=== PATIENT | male | born 1955 | race Asian ===

== ENCOUNTER 2022-06-11 10:39 | Outpatient (REF) | payer OTHER, SELFPAY ==
[2022-06-11 13:48] LABS: MANUAL DIFF FLAG NO
[2022-06-11 13:58] LABS: Basophils Percent Auto 0.7 % (0-2); Eosinophils Absolute Auto 0.3 X10*3/uL (0.0-0.4); Eosinophils Percent Auto 7.4 % (0-4); Hematocrit 41.9 % (42.0-52.0); Hemoglobin 13.9 g/dl (14.0-18.0); Imm Gran Abs Auto 0.01 X10*3/uL (0.00-0.03); Imm Gran Pct Auto 0.2 % (0.0-0.4); Lymphocytes Absolute Auto 1.9 X10*3/uL (1.2-4.9); Lymphocytes Percent Auto 41.4 % (20-40); Mean Corpuscular HGB Conc 33.2 g/dl (31.0-36.0); Mean Corpuscular Hemoglobin 31.8 pg (27.0-33.0); Mean Corpuscular Volume 95.9 fL (80.0-98.0); Monocytes Absolute Auto 0.5 X10*3/uL (0.1-1.2); Neutrophils Absolute Auto 1.9 x10*3/uL (2.0-8.3); Neutrophils Percent Auto 40.3 % (45-73); Platelet Count 289 X10*3/uL (160-400); Red Blood Count 4.37 X10*6/uL (4.60-5.80); Red Cell Distribution Width 12.7 % (11.0-16.0); White Blood Count 4.6 X10*3/uL (4.8-10.8)
[2022-06-11 14:11] LABS: Alanine Aminotransferase 16 U/L (0-40); Albumin Level 4.4 g/dL (3.5-5.0); Alkaline Phosphatase 73 U/L (39-117); Anion Gap 11 (12-20); Aspartate Amino Transferase 20 U/L (5-37); Bilirubin Total 0.6 mg/dL (0.0-1.0); Blood Urea Nitrogen 12 mg/dL (9-16); Calcium 9.5 mg/dL (8.4-10.2); Carbon Dioxide 27 mmol/L (22-29); Chloride 105 mmol/L (96-108); Cholesterol 177 mg/dL; Estimated Glomerular Filt Rate > 60; Glucose Fasting 89 mg/dL (60-99); HDL Cholesterol 47 mg/dL; LDL Cholesterol Calculated 117 mg/dl; Potassium 4.6 mmol/L (3.3-5.1); Sodium 138 mmol/L (135-145); Triglycerides 66 mg/dL
[2022-06-11 14:33] LABS: Prostate Specific Antigen 2.64 ng/mL (<0.05-4.0)
== END 2022-06-11 10:40 | disposition home or self-care (01) ==
LOC: HO.10HDL 10:39
PROVIDERS: Visit Provider Internal Medicine
DX: Z00.00 Encounter for general adult medical examination without abnormal findings (principal); Z12.5 Encounter for screening for malignant neoplasm of prostate; Z13.31 Encounter for screening for depression; H26.8 Other specified cataract
CPT/HCPCS: 36415; 80053; 80061; 84153; 85025

== ENCOUNTER 2022-09-12 | Outpatient (REF) | payer MEDICAID, SELFPAY ==
--- NOTE | ~2022-09-12 | XR_ITS ---
EXAMINATION: XR SHOULDER, RIGHT CLINICAL INFORMATION: M25.511 - Pain in right shoulder COMPARISON: None TECHNIQUE: Right shoulder is imaged in 3 views. FINDINGS: No fracture, dislocation, destructive process. The glenohumeral joint is unremarkable. The acromioclavicular alignment is normal. There are no visible rotator cuff calcifications. XR/XR shoulder RT min 2V IMPRESSION: Unremarkable right shoulder.
== END 2022-09-12 00:01 | disposition home or self-care (01) ==
LOC: HO.HOSX
PROVIDERS: Visit Provider Physician Assistant
DX: M77.8 Other enthesopathies, not elsewhere classified (principal)
CPT/HCPCS: 73030; 99202

== ENCOUNTER 2023-06-12 09:56 | Outpatient (REF) | payer MEDICAID, SELFPAY ==
[2023-06-12 10:49] LABS: MANUAL DIFF FLAG NO
[2023-06-12 10:54] LABS: Basophils Percent Auto 0.6 % (0-2); Eosinophils Absolute Auto 0.3 X10*3/uL (0.0-0.4); Eosinophils Percent Auto 5.1 % (0-4); Hematocrit 41.9 % (42.0-52.0); Hemoglobin 14.3 g/dl (14.0-18.0); Imm Gran Abs Auto 0.01 X10*3/uL (0.00-0.03); Imm Gran Pct Auto 0.2 % (0.0-0.4); Lymphocytes Absolute Auto 1.7 X10*3/uL (1.2-4.9); Lymphocytes Percent Auto 33.1 % (20-40); Mean Corpuscular HGB Conc 34.1 g/dl (31.0-36.0); Mean Corpuscular Hemoglobin 33.5 pg (27.0-33.0); Mean Corpuscular Volume 98.1 fL (80.0-98.0); Mean Platelet Volume 9.3 fL (9.4-12.4); Monocytes Absolute Auto 0.5 X10*3/uL (0.1-1.2); Neutrophils Absolute Auto 2.6 x10*3/uL (2.0-8.3); Platelet Count 210 X10*3/uL (160-400); Red Blood Count 4.27 X10*6/uL (4.60-5.80); Red Cell Distribution Width 12.6 % (11.0-16.0); White Blood Count 5.1 X10*3/uL (4.8-10.8)
[2023-06-12 12:41] LABS: Thyroid Stimulating Hormone 1.73 uIU/mL (0.32-4.0)
[2023-06-12 13:04] LABS: Folate 18.2 ng/mL (> or = 4.0); Prostate Specific Antigen Scr 4.17 ng/mL (<0.05-4.0); Vitamin B12 788 pg/mL (200-900)
[2023-06-12 13:23] LABS: Alanine Aminotransferase 15 U/L (0-40); Albumin Level 4.1 g/dL (3.5-5.0); Alkaline Phosphatase 67 U/L (39-117); Anion Gap 12 (12-20); Aspartate Amino Transferase 20 U/L (5-37); Bilirubin Total 0.7 mg/dL (0.0-1.0); Blood Urea Nitrogen 14 mg/dL (9-16); Carbon Dioxide 27 mmol/L (22-29); Chloride 106 mmol/L (96-108); Cholesterol 173 mg/dL; Estimated Glomerular Filt Rate > 60; Glucose Random 57 mg/dL (60-115); HDL Cholesterol 45 mg/dL; LDL Cholesterol Calculated 108 mg/dl; Sodium 141 mmol/L (135-145); Total Protein 7.7 g/dL (6.5-8.0); Triglycerides 103 mg/dL
[2023-06-14 20:53] LABS: TS Negative Control Passed; TS Panel A 5; TS Panel B 9; TS Positive Control Passed; TSpotTB Positive (Negative)
== END 2023-06-12 09:57 | disposition home or self-care (01) ==
LOC: HO.10HDL 09:56
PROVIDERS: Visit Provider Internal Medicine
DX: Z00.00 Encounter for general adult medical examination without abnormal findings (principal); Z12.5 Encounter for screening for malignant neoplasm of prostate; Z11.1 Encounter for screening for respiratory tuberculosis; Z13.31 Encounter for screening for depression; N40.0 Benign prostatic hyperplasia without lower urinary tract symptoms; M77.02 Medial epicondylitis, left elbow; M22.2X1 Patellofemoral disorders, right knee; D64.9 Anemia, unspecified
CPT/HCPCS: 36415; 80053; 80061; 82607; 82746; 84153; 84443; 85025; 86481

== ENCOUNTER 2023-06-19 16:05 | Outpatient (REF) | payer MEDICAID, SELFPAY ==
--- NOTE | ~2023-06-19 | XR_ITS ---
EXAMINATION: XR CHEST CLINICAL INFORMATION: Positive TB test. COMPARISON: None available. TECHNIQUE: 2 views of the chest were obtained. FINDINGS: The lungs are hyperexpanded. Question focal opacity in the right upper lung. No pleural effusion. Cardiac silhouette is within normal limits. XR/XR chest 2V IMPRESSION: Hyperexpansion of lungs. Possible focal opacity in the right upper lung. Short interval follow-up is recommended.
[2023-06-19 20:02] LABS: Prostate Specific Antigen 3.37 ng/mL (<0.05-4.0)
== END 2023-06-19 16:06 | disposition home or self-care (01) ==
LOC: HO.XRAY 16:05
PROVIDERS: PCP Internal Medicine; Visit Provider Internal Medicine
DX: R97.20 Elevated prostate specific antigen [PSA] (principal); Z11.7 Encounter for testing for latent tuberculosis infection; Z12.5 Encounter for screening for malignant neoplasm of prostate
CPT/HCPCS: 36415; 71046; 84153

== ENCOUNTER 2023-12-12 10:06 | Outpatient (REF) | payer OTHER, SELFPAY ==
[2023-12-12 11:02] LABS: Alanine Aminotransferase 17 U/L (0-40); Albumin Level 4.1 g/dL (3.5-5.0); Alkaline Phosphatase 75 U/L (39-117); Anion Gap 9 (12-20); Aspartate Amino Transferase 20 U/L (5-37); Bilirubin Total 0.7 mg/dL (0.0-1.0); Blood Urea Nitrogen 11 mg/dL (9-16); Calcium 9.5 mg/dL (8.4-10.2); Carbon Dioxide 28 mmol/L (22-29); Chloride 107 mmol/L (96-108); Estimated Glomerular Filt Rate > 60; Glucose Random 94 mg/dL (60-115); Potassium 4.2 mmol/L (3.3-5.1); Sodium 140 mmol/L (135-145)
== END 2023-12-12 10:07 | disposition home or self-care (01) ==
LOC: HO.10HDL 10:06
PROVIDERS: Visit Provider Internal Medicine
DX: Z12.5 Encounter for screening for malignant neoplasm of prostate (principal); M22.2X1 Patellofemoral disorders, right knee; R76.12 Nonspecific reaction to cell mediated immunity measurement of gamma interferon antigen response without active tuberculosis; R91.8 Other nonspecific abnormal finding of lung field; R97.20 Elevated prostate specific antigen [PSA]
CPT/HCPCS: 36415; 80053; 84153

== ENCOUNTER 2023-12-12 10:13 | Outpatient (REF) | payer OTHER, SELFPAY ==
--- NOTE | ~2023-12-12 | XR_ITS ---
X-RAY BILATERAL KNEES CLINICAL HISTORY: Bilateral knee osteoarthritis. COMPARISON: No relevant prior studies are available for comparison. TECHNIQUE: 4 views of each knee were obtained. FINDINGS: No fracture or subluxation. Severe joint space narrowing of the medial compartment of the right knee with associated subcortical sclerosis and marginal osteophytes. Moderate joint space narrowing of the medial compartment of the left knee and bilateral patellofemoral compartments. No erosions. No chondrocalcinosis. No joint effusions. XR/XR knee RT 4V IMPRESSION: 1. No acute fractures or subluxation. 2. Severe degenerative osteoarthritis of the medial compartment of the right knee. 3. Moderate generalized osteoarthritis of the medial compartment of the left knee and bilateral patellofemoral compartments.
--- NOTE | ~2023-12-12 | XR_ITS ---
X-RAY BILATERAL KNEES CLINICAL HISTORY: Bilateral knee osteoarthritis. COMPARISON: No relevant prior studies are available for comparison. TECHNIQUE: 4 views of each knee were obtained. FINDINGS: No fracture or subluxation. Severe joint space narrowing of the medial compartment of the right knee with associated subcortical sclerosis and marginal osteophytes. Moderate joint space narrowing of the medial compartment of the left knee and bilateral patellofemoral compartments. No erosions. No chondrocalcinosis. No joint effusions. XR/XR knee LT 4V IMPRESSION: 1. No acute fractures or subluxation. 2. Severe degenerative osteoarthritis of the medial compartment of the right knee. 3. Moderate generalized osteoarthritis of the medial compartment of the left knee and bilateral patellofemoral compartments.
== END 2023-12-12 10:14 | disposition home or self-care (01) ==
LOC: HO.XRAY 10:13
PROVIDERS: PCP Internal Medicine; Visit Provider Internal Medicine
DX: M17.0 Bilateral primary osteoarthritis of knee (principal)
CPT/HCPCS: 73564

== ENCOUNTER 2024-07-20 08:35 | Outpatient (REF) | payer OTHER, SELFPAY ==
--- NOTE | ~2024-07-20 | CT_ITS ---
EXAMINATION: CT CHEST WITH CONTRAST CLINICAL INFORMATION: Question of focal opacity/nodule right upper lung on chest x-ray. COMPARISON: Chest x-ray dated 06/19/2023. No prior CT. TECHNIQUE: Multidetector volumetric CT imaging of the chest was obtained after the administration of 65 mL of Omnipaque 350 intravenous contrast without immediate adverse reactions. Axial MIP volume rendering provided. Sagittal and coronal reformatted images were obtained. This CT examination was performed using dose optimization techniques as appropriate, variously including the following: *Automated exposure control *Adjustment of mA and/or kV according to patient size (this includes techniques or standardized protocols for targeted exams where dose is matched to indication/reason for exam; i.e. extremities or head) *Use of iterative reconstruction technique DLP: 80 mGy-cm Please note, due to [facility] contractual, systems, and staffing issues, an [facility] radiologist was not available for review and dictation of this case until 08/18/2024. FINDINGS: AUTOMOBILE MECHANIC HELPER: Hyperaerated lungs. PULMONARY NODULES: -There are scattered 2-3 mm nodules in both lungs, some calcified. -5 mm x 3 mm rectangular nodule (average diameter 4 mm) in the medial anterior right upper lobe (series 5 image [id number]). This is most likely conforming to a dilated bronchiole. -4 mm nodule with pleural tag and right major fissure medially (series 5, image 130), consistent with intrapulmonary lymph node. -There are no suspicious pulmonary nodules identified. LUNGS: -There is right greater than left apical pleural parenchymal scarring. -There is mild centrilobular emphysema. -There is mild subpleural scarring in the lateral aspect of the superior segment left lower lobe, and left lateral basal segment left lower lobe. -There are no consolidations or evidence of active lung disease. -No pleural effusions or pleural masses. -Small Airways appear normal. Central airways are widely patent. MEDIASTINUM: -Patulous, dilated esophagus is noted. Etiology uncertain. -Normal thyroid. -Aorta is normal in caliber and course with mild calcification. Three-vessel branching pattern. -Main pulmonary artery is normal in size. -No lymphadenopathy in the mediastinum or hilar regions. -Heart size is normal. No pericardial effusion. -There are mild three-vessel coronary calcifications most notable in the LAD. AXILLA/CHEST WALL: No masses or abnormal lymph nodes. UPPER ABDOMEN: -Mild enhancement of the gastric mucosa diffusely, possibly suggesting underlying gastritis. Prominent common-bile duct in the head of the pancreas measuring up to 10 mm. -Contracted gallbladder. -Mild intrahepatic biliary dilatation. -Diffuse fatty infiltration of the liver. No focal liver abnormality in the partially imaged liver. -There are gastric varices and mild splenic varices. OSSEOUS STRUCTURES: -Focal tiny sclerotic lesion in the right fourth rib laterally, nonspecific and most likely a benign bone island. Osseous structures otherwise normal. CT/CT chest w IV con IMPRESSION: 1. Mild centrilobular emphysema with pulmonary hyperaeration. No active underlying pulmonary disease. 2. Scattered pulmonary nodules, largest measuring 4 mm average diameter in the medial right upper lobe. In a high-risk patient, 1 year follow-up suggested. 3. There is no CT correlate to the chest x-ray finding in the right upper lung. 4. Diffuse fatty infiltration of the liver. Splenic and gastric varices may suggest portal hypertension. No obvious cirrhosis seen. 5. Dilated intrahepatic and extrahepatic bile ducts, uncertain etiology or clinical significance. Correlate with laboratory values. Gallbladder is contracted. 6. Diffusely dilated esophagus, uncertain etiology. 7. Enhancement of the gastric mucosa may suggest gastritis. No mass is identified. (Consider correlating with upper GI study). 8. Additional ancillary findings as discussed in the body of the report. Fleischner guidelines were followed. Electronically signed by: Munir Sandoval MD 08/18/2024 11:09 AM EDT
[2024-07-20] MEDS: iohexoL 350 MG/ML 75 ML INFUS..BTL 65 ML IV (09:13)
[2024-07-22 14:16] LABS: Creatinine POC 0.9 mg/dL (0.5-1.4); GFR POC > 60
== END 2024-07-20 08:36 | disposition home or self-care (01) ==
LOC: HO.CT 08:35
PROVIDERS: PCP Internal Medicine; Visit Provider Internal Medicine
DX: R91.8 Other nonspecific abnormal finding of lung field (principal)
CPT/HCPCS: 71260; 82565; Q9967

== ENCOUNTER → 2024-07-20 08:38 | Outpatient (BNV) | payer OTHER, SELFPAY | PROVIDERS: PCP Internal Medicine; Visit Provider Radiology Diagnostic Radiology | DX: R91.8 Other nonspecific abnormal finding of lung field (principal) | CPT/HCPCS: 71260 ==

== ENCOUNTER 2024-11-09 10:24 | Outpatient (AMB) | payer OTHER, SELFPAY ==
--- NOTE | 2024-11-09 10:26 | MHC.OFFVIS ---
Vital Signs 11/09/24 10:34 Height 5 ft 8 in Weight 126 lb BMI 19.2 BP 117/69 Blood Pressure Location Rt brachial Position Sitting Pulse 77 Intake Visit Reasons: Hernia Intake Note: Patient referred by pcp Dr. Linder for Unilateral inguinal hernia. Present for 1m. Patient c/o: pain on Rt lower quadrant. Denies nausea, diarrhea. Video Game Animator Required: Yes Video Game Animator Name: Haresh son~ valentine language Accompanied by: son Haresh Allergies No Known Allergies Allergy (Verified 11/09/24 10:31) HPI Comments Details: Patient presents with a son who also serves as an fruit inspector. The dad has had a symptomatic right inguinal hernia for several months to years time. His increasing in size, become more symptomatic. He would like to have it repaired. He had a pediatric her to be in his youth. He had an appendectomy in the past. Patient has no other GI issues or complaints. He tolerated regular diet. Has normal bowel habits. Chart was reviewed and patient evaluate [facility] Medical History (Updated 11/09/24 @ 10:35 by MAYNOR Barroso) Left inguinal hernia Appendicitis Social History (Updated 09/12/22 @ 15:39 by Stephanie Cheatham [facility]) Current occupational status: retired and disabled Current occupation: right hand Physical Exam Vital Signs: Last Vital Signs Pulse 77 11/09/24 10:34 BP 117/69 11/09/24 10:34 BMI result Body Mass Index 19.2 Const Other: Very thin patient no acute distress Chest Other: Chest breath sounds bilaterally, HS 1 in 2 GI Other: Patient was examined both supine and standing with Valsalva. Abdomen is scaphoid, soft, benign. Left groin negative. Genitalia within normal limits. High-riding right testicle. Patient was a very large right inguinal hernia reducible. Assessment & Plan Assessment & Plan (1) Right inguinal hernia: Code(s): K40.90 - Unilateral inguinal hernia, without obstruction or gangrene, not specified as recurrent Category: Surgical Plan Risks, benefits, alternatives of open right inguinal hernia repair with mesh were reviewed with the patient and included but not limited to bleeding, infection, recurrence, numbness, pain, scarring and the patient wishes to proceed. All questions answered. Arrangements made for this on a day which is convenient for him. Coding Level of Care Code New Pt Level 5 (92194) Diagnoses Right inguinal hernia K40.90
[2024-11-09 10:34] VITALS: BP 117/69; PULSE 77; BMI 19.2
--- OUTSIDE RECORDS SUMMARY | 2024-11-11 14:33 | XMS_ITS | Continuity of Care Document ---
Author Organization Formerly [facility] Address [address] [place] [id number]- Care Team Providers Care Suspender Maker Name Role Phone Amisha Linder MD Primary Care Physician [id number] Date(s): 09/15/24 - 10/15/24 [facility] [address] [address]- Attending Physician: Melissa Landon Admitting Physician: Melissa Landon Referring Physician: Melissa Landon Encounter Type: Triage Patient Care team information Care Team Personnel Name: Amisha Linder MD Position: [facility] Outreach Member Role: PCP Address: [address] [place] [address] [address] Amisha Linder [place], [place] [address] Telecom: Care Team Related Persons Name: JANAE WEST Insurance Providers Guarantor name: NA Health Plan Information #: 1 Payer: [employer] Member Number: NA Policy Number: NA Group Number: NA Health Plan Information #: 2 Payer: [facility] Member Number: NA Policy Number: NA Group Number: NA
== END 2024-11-09 10:44 | disposition home or self-care (01) ==
PROVIDERS: PCP Internal Medicine; Visit Provider Surgery
DX: K40.90 Unilateral inguinal hernia, without obstruction or gangrene, not specified as recurrent (principal)
CPT/HCPCS: 99204

== ENCOUNTER 2024-11-09 10:58 | Outpatient (REF) | payer OTHER, SELFPAY ==
--- NOTE | ~2024-11-09 | XR_ITS ---
EXAMINATION: XR KNEE AP STANDING CLINICAL INFORMATION: Pain in right knee M25.561. COMPARISON: XR Right knee 12/12/2023 TECHNIQUE: AP bilateral standing view of the knees was obtained. FINDINGS: Moderate medial compartment osteoarthritis of the right knee. Minimal narrowing of the medial compartment of the left knee. XR/XR knee standing BI IMPRESSION: Moderate medial compartment osteoarthritis of the right knee. Minimal medial compartment osteoarthritis of the left knee. Electronically signed by: Andres Ellison MD 12/17/2024 03:06 PM LOBO
== END 2024-11-09 10:59 | disposition home or self-care (01) ==
LOC: HO.HOSX 10:58
PROVIDERS: Visit Provider Physician Assistant
DX: M25.561 Pain in right knee (principal); M25.562 Pain in left knee; M17.0 Bilateral primary osteoarthritis of knee
CPT/HCPCS: 20610; 73565; 99212; J1010; J2003

== ENCOUNTER 2024-11-09 13:09 | Outpatient (AMB) | payer OTHER, SELFPAY ==
[2024-11-09 13:31] VITALS: BMI 19.2
--- NOTE | 2024-11-09 13:31 | A.OFFVIS_ITS ---
Vital Signs 11/09/24 13:31 Height 5 ft 8 in Weight 126 lb BMI 19.2 Intake Visit Reasons: Newprob-B/L knee pain Intake Note: Koko 69 yr old male Bernadette speaker presents today with his son Haresh, for a new problem visit for bilateral knee pain. States his right knee is worst. Denies injury. States his pain is in his kneecap, constant pain everyday, no swelling. States he has not tried OTC medication and has not found pain relief with rest. Denies numbness or tingling in toes. No proir knee sx or injections. Allergies No Known Allergies Allergy (Verified 11/09/24 13:38) Medication List - Last Reconciled 11/09/24 by Ellyn Albright PA-C No Known Home Meds HPI HPI Newprob-B/L knee pain: Details: 69-year-old Gujrati speaking male who presents to the office today with his son for an evaluation of bilateral knee pain. He denies any prior injury to his knees. He states he has constant bilateral knee pain located at the kneecap that is worse on his right knee. His pain is aggravated with stairs, bending and walking. He denies any swelling in knee or any numbness and tingling in toes. He has not found pain relief with rest and has not tried OTC medication. He has not had any treatment in the past. He does not have a history of diabetes. [facility] Medical History (Updated 11/09/24 @ 13:47 by Ellyn Albright PA-C) Left inguinal hernia Appendicitis Social History (Updated 09/12/22 @ 15:39 by Stephanie Cheatham [facility]) Current occupational status: retired and disabled Current occupation: right hand Review of Systems Const All systems reviewed & are unremarkable except as noted in HPI and below Physical Exam Vital Signs: BMI result Body Mass Index 19.2 Extrem Other: Bilateral knee: Skin intact, no erythema or joint effusion. Tenderness along the medial and lateral joint line. Full ROM with crepitus. Negative Philipp?s. No l igamentous laxity. NVI. Office Procedures AMB Joint Injection/Aspiration Joint Injection/Aspiration Primary Site: right knee Secondary Site: left knee Prep: site was prepped using aseptic technique, ethochloride spray was applied and injection warnings given Injected: 80 mg of, DepoMedrol, with 8 mL of, 1% plain lidocaine and in the joint Approach Used: anterolateral Procedure: The patient tolerated the procedure well and there was some relief with the local anesthesia Coding 21788 - Glenohumeral/Tronchanteric Bursa/Intraarticular Procedure code (CPT) selection complete Assessment & Plan Assessment & Plan (1) Primary localized osteoarthritis of knees, bilateral: Code(s): M17.0 - Bilateral primary osteoarthritis of knee Category: Medical Plan We discussed options today, which include steroid injection. The patient did consent to move forward with the bilateral knee injection, which was tolerated well. I recommended rest, ice, and elevation and OTC anti-inflammatories as needed for discomfort. If symptoms persist or worsens over the next 6-8 weeks, patient will contact the office, otherwise follow-up as needed. Orders: Orders XR knee standing BI Today M25.561 - Pain in right knee, M25.562 - Pain in left knee PT Evaluation and Treatment Today M17.0 - Bilateral primary osteoarthritis of knee Patient Instructions: Scribed for Ellyn Albright PA-C, by Luis Mtz chief medical technologist, on 11/09/2024 at 1:30 PM EST.? I, Ellyn Albright PA-C, have personally reviewed and agree with the information entered by the scribe. Coding Level of Care Code Est Pt Level 3 (62614) Complex EM visit Add On G2211 Diagnoses Primary localized osteoarthritis of knees, bilateral M17.0 CPT Codes Coding - Joint 7: 84553 - Glenohumeral/Tronchanteric Bursa/Intraarticular ([id number])
== END 2024-11-09 14:12 | disposition home or self-care (01) ==
PROVIDERS: PCP Internal Medicine; Visit Provider Physician Assistant
DX: M17.0 Bilateral primary osteoarthritis of knee (principal)
CPT/HCPCS: 20610; 99213

== ENCOUNTER 2025-01-15 07:56 | Outpatient (REF) | payer OTHER, SELFPAY ==
[2025-01-15 09:39] LABS: Hematocrit 42.9 % (42.0-52.0); Hemoglobin 14.7 g/dl (14.0-18.0); Mean Corpuscular HGB Conc 34.3 g/dl (31.0-36.0); Mean Corpuscular Hemoglobin 33.3 pg (27.0-33.0); Mean Corpuscular Volume 97.1 fL (80.0-98.0); Mean Platelet Volume 8.8 fL (9.4-12.4); Platelet Count 237 X10*3/uL (160-400); Red Blood Count 4.42 X10*6/uL (4.60-5.80); Red Cell Distribution Width 13.2 % (11.0-16.0); White Blood Count 3.9 X10*3/uL (4.8-10.8)
[2025-01-15 09:46] LABS: Prothrombin Time 11.9 SEC (10.9-12.4)
[2025-01-15 10:27] LABS: Alanine Aminotransferase 16 U/L (0-40); Albumin Level 4.3 g/dL (3.5-5.0); Alkaline Phosphatase 68 U/L (39-117); Anion Gap 10 (12-20); Aspartate Amino Transferase 25 U/L (5-37); Bilirubin Total 0.6 mg/dL (0.0-1.0); Blood Urea Nitrogen 12 mg/dL (9-16); Calcium 9.5 mg/dL (8.4-10.2); Carbon Dioxide 27 mmol/L (22-29); Chloride 106 mmol/L (96-108); Estimated Glomerular Filt Rate > 60; Glucose Random 91 mg/dL (60-115); Lipase 35 U/L (8-78); Potassium 4.6 mmol/L (3.3-5.1); Sodium 138 mmol/L (135-145); Total Protein 8.3 g/dL (6.5-8.0)
== END 2025-01-15 07:57 | disposition home or self-care (01) ==
LOC: HO.LAB 07:56
PROVIDERS: PCP Internal Medicine; Visit Provider Nurse Practitioner Family
DX: R10.9 Unspecified abdominal pain (principal); K21.9 Gastro-esophageal reflux disease without esophagitis; R74.8 Abnormal levels of other serum enzymes; Z12.11 Encounter for screening for malignant neoplasm of colon; I86.8 Varicose veins of other specified sites; I86.4 Gastric varices; K76.0 Fatty (change of) liver, not elsewhere classified
CPT/HCPCS: 36415; 80053; 83690; 85027; 85610; 99202

== ENCOUNTER 2025-01-15 07:56 | Outpatient (AMB) | payer OTHER, SELFPAY ==
--- NOTE | 2025-01-15 08:03 | MHC.OFFVIS ---
Vital Signs 01/15/25 08:04 Height 5 ft 9 in Weight 126 lb 15.78 oz BMI 18.8 BP 114/74 Blood Pressure Location Rt brachial Position Sitting Pulse 70 Pulse Source Pulse Oximeter Pulse Oximetry (%) 100 Oxygen Delivery Method Room Air Intake Visit Reasons: Colonoscopy consult Intake Note: NEW PATIENT for initial colonoscopy Prior hx of colo/egd? Per pcp note, pt has hx of refusing both cologuard and colonoscopy Chief Complaint; No GI concerns per pt. Pt son is interpreting for him and identifies himself as his HCP. C Unix Developer Required: Yes C Unix Developer Services: C Unix Developer Offered & Declined Accompanied by: Son Allergies No Known Allergies Allergy (Verified 01/15/25 08:04) HPI HPI Colonoscopy consult: Details: 59 year old? male with past medical history of inguinal hernia, osteoarthritis, depression, constipation is here today for pre colonoscopy screening.? Patient also was referred to us by his general surgeon. Patient was supposed to go for inguinal hernia repair, however Dr. Rocha saw CT scan that show gastric varices as well as splenic varices and send him to us for evaluation. Patient never had colonoscopy in the past. Patient reports that he is not a drinker. Patient denies any gastrointestinal symptoms in the past or at present.? Denies any personal or family history of gastrointestinal disease, colon polyps, or CRC.? Denies history of difficulty with sedation or anesthesia in the past.? Negative for history of sleep apnea.? Denies any history of cardiac, renal, pulmonary, or hepatic disease.?? No history of infectious? diseases like hepatitis A, B, C, HIV or tuberculosis.? Patient is not on any anticoagulation [facility] Medical History (Updated 01/15/25 @ 11:52 by Yaa Hernandez, [facility]) Splenic varices History of Mantoux positive, treatment status unknown Mild emphysema Gastric varices Fatty liver Pulmonary nodules Chronic idiopathic constipation Depression Osteoarthritis Left inguinal hernia Appendicitis Surgical History Hx of bilateral cataract extraction Hx of hernia repair Hx of appendectomy Social History Household Members Other:: son Housing: House Are you a primary child care assistant to a significant other at home: No Do you presently have visiting nurse or other home services: No Patient Tobacco Use Status: Never used Tobacco Current occupational status: retired and disabled Current occupation: right hand Physical Exam Vital Signs: Last Vital Signs Pulse 70 01/15/25 08:04 BP 114/74 01/15/25 08:04 Pulse Ox 100 01/15/25 08:04 Oxygen Delivery Method Room Air 01/15/25 08:04 BMI result Body Mass Index 18.8 Assessment & Plan Assessment & Plan (1) Screen for colon cancer: Code(s): Z12.11 - Encounter for screening for malignant neoplasm of colon (2) Splenic varices: Code(s): I86.8 - Varicose veins of other specified sites Category: Medical (3) Gastric varices: Code(s): I86.4 - Gastric varices (4) Fatty liver: Code(s): K76.0 - Fatty (change of) liver, not elsewhere classified Category: Medical Plan Patient denies any GI, cardiac or respiratory symptoms.? Denies any issues with anesthesia in the past.? Denies any history of sleep apnea.? No history infectious diseases in the past or present.? Not on any anticoagulation therapy.? No family or personal history of colon cancer or polyps.? Patient denies melena, hematochezia, unintentional weight loss or ribbon like stools.? Gastric and splenic varices seen as well as possible gastritis on CT scan last year. Patient was referred by Dr. Rocha to us for that reason. PCP send patient to us for colonoscopy screening. Will order blood work today. CBC and CMP as well as PT and INR. Will check abdominal ultrasound to re-evaluate the liver and spleen closer. Patient will return in 3 months will discuss colonoscopy and patient will be sent for upper endoscopy as well. Both patient and his son is agreeable to plan of care and verbalizes understanding of instructions. They were given the opportunity to ask questions and all questions answered. Thank you for allowing me to participate in his care Orders: Orders US abdomen complete Today R16.1 - Splenomegaly, not elsewhere classified Lipase Today R10.9 - Unspecified abdominal pain Prothrombin Time INR Today R74.8 - Abnormal levels of other serum enzymes Complete Blood Count no Diff Today K21.9 - Gastro-esophageal reflux disease without esophagitis Comprehensive Met. Panel Today K21.9 - Gastro-esophageal reflux disease without esophagitis Medications: New bisacodyl (Dulcolax (bisacodyl)) take 4 tabs at noon the day before your colonoscopy 20 mg (4 x 5 mg) PO ONCE 1 day 4 tabs 0RF Z12.11 - Encounter for screening for malignant neoplasm of colon polyethylene glycol 3350 (Miralax) As directed by gastroenterology department at [facility] 238 grams PO ONCE 238 grams 0RF Z12.11 - Encounter for screening for malignant neoplasm of colon Coding Level of Care Code New Pt Level 4 (44963) Diagnoses Screen for colon cancer Z12.11 Splenic varices I86.8 Gastric varices I86.4 Fatty liver K76.0 Time Spent (min) 45 Comment 30 minutes spent with patient and additional 15 minutes spent reviewing his records
[2025-01-15 08:04] VITALS: BP 114/74; PULSE 70; O2SAT 100; BMI 18.8
== END 2025-01-15 08:40 | disposition home or self-care (01) ==
PROVIDERS: PCP Internal Medicine; Visit Provider Nurse Practitioner Family
DX: K76.0 Fatty (change of) liver, not elsewhere classified (principal); I86.4 Gastric varices; I86.8 Varicose veins of other specified sites
CPT/HCPCS: 99204

== ENCOUNTER 2025-02-08 08:29 | Outpatient (REF) | payer OTHER, SELFPAY ==
--- NOTE | ~2025-02-08 | US_ITS ---
EXAMINATION: US ABDOMEN HISTORY: R16.1 - Splenomegaly, not elsewhere classified TECHNIQUE: Real-time grayscale ultrasound imaging of the abdomen was performed and images were reviewed. COMPARISON: There are no prior studies for comparison. FINDINGS: Liver: The right lobe of the liver measures 12.0 cm in size. The left lobe of the liver measures 10.1 cm in size. The liver demonstrates normal homogeneous echotexture. There is a calcification in the right lobe. No focal mass or intrahepatic biliary ductal dilatation is identified. There is normal hepatopedal flow in the portal vein. Gallbladder and biliary tree: There is a 2 mm gallbladder polyp. The gallbladder is otherwise unremarkable, without evidence of calculi, wall thickening, or pericholecystic fluid. There is no sonographic Kaufman sign. The common bile duct is normal in caliber measuring 4 mm. Kidneys: The right kidney measures 9.9 cm in length and demonstrates multiple cysts measuring up to 1.3 x 1.2 x 1.4 cm in size. The left kidney measures 9.8 cm in length. The kidneys are otherwise unremarkable, without evidence of solid masses, hydronephrosis, or calculi. Pancreas: The pancreatic head, neck, and body are unremarkable. The pancreatic tail is obscured by bowel gas. Spleen: The spleen is normal in size and contour, measuring 7.0 cm in length. Abdominal aorta and inferior vena cava: The visualized portions of the abdominal aorta and inferior vena cava are normal in caliber. There is no free fluid in the abdomen. US/US abdomen complete IMPRESSION: 1. The spleen is normal in size. 2. 2 mm gallbladder polyp. 3. Right renal cysts measuring up to 1.4 cm in size. Electronically signed by: Joshua Gooden MD 02/09/2025 07:47 AM EDT
== END 2025-02-08 08:30 | disposition home or self-care (01) ==
LOC: HO.US 08:29
PROVIDERS: PCP Internal Medicine; Visit Provider Nurse Practitioner Family
DX: R16.1 Splenomegaly, not elsewhere classified (principal)
CPT/HCPCS: 76700

== ENCOUNTER → 2025-02-08 08:31 | Outpatient (BNV) | payer OTHER, SELFPAY | PROVIDERS: PCP Internal Medicine; Visit Provider Radiology Diagnostic Radiology | DX: R16.1 Splenomegaly, not elsewhere classified (principal); K82.4 Cholesterolosis of gallbladder; N20.0 Calculus of kidney | CPT/HCPCS: 76700 ==

== ENCOUNTER 2025-03-09 10:40 | Day surgery (SDC) | payer OTHER, SELFPAY ==
--- NOTE | 2025-03-08 10:28 | HO.ANESPROP2 ---
Documented by User: Carmencita Gaffney NP 03/08/25 10:32 HPI - Anesthesia Eval Consult details Narrative: 69yo M for Upper Endoscopy and Colonoscopy Gastric and splenic varices on CT, denies ETOH PMFSH Active Problems Active Problems: All Active Problems Fatty liver (Acute) Splenic varices (Acute) Primary localized osteoarthritis of knees, bilateral (Acute) Right inguinal hernia (Acute) Right shoulder tendonitis (Acute) Past Medical History Medical History Splenic varices History of Mantoux positive, treatment status unknown Mild emphysema Gastric varices Fatty liver Pulmonary nodules Chronic idiopathic constipation Depression Osteoarthritis Left inguinal hernia Appendicitis Surgical History Surgical History Hx of bilateral cataract extraction Hx of hernia repair Hx of appendectomy Social History Social History Household Members Other:: son Housing: House Are you a primary residential care facility manager to a significant other at home: No Do you presently have visiting nurse or other home services: No Patient Tobacco Use Status: Never used Tobacco Have you been hit, kicked, punched, or otherwise hurt by someone within the past year? If so, by whom?: No Are you DNR?: No Advance Directives: No Advance Directives Information Provided: Yes Poor oral hygiene: Yes Current occupational status: retired and disabled Current occupation: right hand Meds Allergies Allergy/AdvReac Type Severity Reaction Status Date / Time No Known Allergies Allergy Verified 01/15/25 08:04 Home Medications ?Medication ?Instructions ?Recorded ?Confirmed ?Last Taken ?Type docusate sodium 100 mg capsule 100 mg PO TID 01/12/25 Unknown History multivitamin 1 tab PO DAILY 01/12/25 01/12/25 Unknown History naproxen 500 mg tablet (Naprosyn) 500 mg PO BID PRN Pain 01/12/25 Unknown History sertraline 25 mg tablet 25 mg PO DAILY 01/12/25 Unknown History Exam Pertinent Lab Results Pertinent Lab Results: Laboratory Tests 01/15/25 09:13 WBC 3.9 L Hgb 14.7 Hct 42.9 Plt Count 237 Sodium 138 Potassium 4.6 Chloride 106 Carbon Dioxide 27 BUN 12 Creatinine 0.92 Laboratory Tests 01/15/25 09:13 PT 11.9 INR 1.0 Narrative Narrative: US abdomen complete 01/2025 IMPRESSION: 1. The spleen is normal in size. 2. 2 mm gallbladder polyp. 3. Right renal cysts measuring up to 1.[address] chest w IV con 07/2024 IMPRESSION: 1. Mild centrilobular emphysema with pulmonary hyperaeration. No active underlying pulmonary disease. 2. Scattered pulmonary nodules, largest measuring 4 mm average diameter in the medial right upper lobe. In a high-risk patient, 1 year follow-up suggested. 3. There is no CT correlate to the chest x-ray finding in the right upper lung. 4. Diffuse fatty infiltration of the liver. Splenic and gastric varices may suggest portal hypertension. No obvious cirrhosis seen. 5. Dilated intrahepatic and extrahepatic bile ducts, uncertain etiology or clinical significance. Correlate with laboratory values. Gallbladder is contracted. 6. Diffusely dilated esophagus, uncertain etiology. 7. Enhancement of the gastric mucosa may suggest gastritis. No mass is identified. (Consider correlating with upper GI study). 8. Additional ancillary findings as discussed in the body of the report. Assessment and Plan Assessment Anesthesia Assessment: Chart Reviewed Documented by User: Juliet Geronimo MD 03/09/25 12:45 PMFSH Past Medical History Medical History Splenic varices History of Mantoux positive, treatment status unknown Mild emphysema Gastric varices Fatty liver Pulmonary nodules Chronic idiopathic constipation Depression Osteoarthritis Left inguinal hernia Appendicitis Family History Family history of problems with anesthesia: No Surgical History Surgical History Hx of bilateral cataract extraction Hx of hernia repair Hx of appendectomy History of Problems with Anesthesia: No Social History Social History Household Members Other:: son Housing: House Are you a primary residential care facility manager to a significant other at home: No Do you presently have visiting nurse or other home services: No Patient Tobacco Use Status: Never used Tobacco Have you been hit, kicked, punched, or otherwise hurt by someone within the past year? If so, by whom?: No Are you DNR?: No Advance Directives: No Advance Directives Information Provided: Yes Poor oral hygiene: Yes Current occupational status: retired and disabled Current occupation: right hand Meds Allergies Allergy/AdvReac Type Severity Reaction Status Date / Time No Known Allergies Allergy Verified 01/15/25 08:04 Home Medications ?Medication ?Instructions ?Recorded ?Confirmed ?Last Taken ?Type docusate sodium 100 mg capsule 100 mg PO TID 01/12/25 Unknown History multivitamin 1 tab PO DAILY 01/12/25 01/12/25 Unknown History naproxen 500 mg tablet (Naprosyn) 500 mg PO BID PRN Pain 01/12/25 Unknown History sertraline 25 mg tablet 25 mg PO DAILY 01/12/25 Unknown History Exam Airway Mallampati Class: III TM Dist: >3cm Neck ROM: Full Partial: Upper and Lower Assessment and Plan Assessment Anesthesia Assessment: Anesthesia Plan Discussed Final Anesthetic Review Family History of Problems with Anesthesia: No History of Problems with Anesthesia: No NPO: Yes ASA Class: II Final Preanesthetic Review: No Changes in Pt Med Stat, Meds/Allgs Chart Reviewed, Consent Obtained/Reviewed and Anes Risks/Benef Reviewed Patient Risk: Low Procedure Risk: Low Anesthetic Plan Anesthetic Plan: TIVA Disposition: Standard PACU
[2025-03-09 11:25] VITALS: BMI 18.2
[2025-03-09] MEDS: Lactated Ringers 1,000 ML 100 ML IVCONT (11:30)
[2025-03-09 11:46] VITALS: BP 121/73; PULSE 73; RESP 18; TEMP 36.7; O2SAT 99
--- NOTE | 2025-03-09 12:08 | MHC.SHP ---
Pre-Procedural Eval Section A - 24 Hr Update-Section A only Date of Service: 03/09/25 Section B - Complete if H&P > 30 days Chief Complaint: screening,gastric varices Relevant Family History (Specify if Yes): No Relevant Social History: None Present Medications: see Short Stay Collaborative assessment Medical History: Significant History (Splenic varices History of Mantoux positive, treatment status unknown Mild emphysema Gastric varices Fatty liver Pulmonary nodules Chronic idiopathic constipation Depression Osteoarthritis Left inguinal hernia Appendicitis) History of Previous Operations: Relevant previous surgery/procedure and date(s) (Hx of bilateral cataract extraction Hx of hernia repair Hx of appendectomy) Allergies: Allergies Allergy/AdvReac Type Severity Reaction Status Date / Time No Known Allergies Allergy Verified 01/15/25 08:04 Review of Systems Sugical H&P ROS: Negative: Constitution, Cardiovascular, Respiratory, Neurological, Psychiatric, Hem-Onc, Allergic/Immunologic, Gastrointestinal, Genitourinary, Musculoskeletal, Integumentary, Endocrine and Eyes/Ears/Nose/Throat Exam Surgical H&P Exam: Normal: HEENT, Normal: Heart, Normal: Lungs, Normal: Extremities, Normal: Abdomen, Normal: Skin and Normal: Neurological Plan Diagnosis/Plan: Unchanged I have reviewed the history and physical and performed a pertinent physical examination on my patient. No changes have occurred unless specified. Time Spent With Patient Time: Total time managing care of this patient today ____ minutes.
--- NOTE | 2025-03-09 12:48 | P.OPN-COLO_ITS ---
Colonoscopy Operative Note Operative Note Date of Service: 03/09/25 Narrative: Operative Information Procedure Description: EGD, Colonoscopy Indication: screening, possible varices Anesthesia: MAC FLEXIBLE TRANSORAL UPPER GASTROINTESTINAL ENDOSCOPY AND COLONOSCOPY PROCEDURE NOTE UPPER ENDOSCOPY Consent: Indications for the procedure and potential complications of bleeding, perforation, reaction to medications and missed diagnosis were discussed with the patient and informed consent was obtained. Instrument: Olympus GIF H 190 J mid size upper endoscope Monitoring: Vital signs and clinical assessment, continuous EKG monitoring, Pulse oximetry, Carbon Dioxide monitoring and blood pressure monitoring were done throughout the procedure. Procedure: The patient was placed in the left lateral decubitis position and pre-procedure medications were administered and a bite block was placed. The endoscope was inserted into the mouth and advanced under direct vision to the third part of duodenum. A careful inspection was made as the upper endoscope was withdrawn including a retroflexed examination of the proximal stomach; Findings and interventions are described below. Findings: Larynx:normal Esophagus: GE junction at 38 cm, diaphragm hiatus at 38 cm, normal mucosa - no varices seen Stomach: Patchy erythema. Biopsies were obtained. Grade 2 flap valve on retroflexed examination of the cardia. No gastric varices seen Duodenum: Normal bulb and descending duodenum, Intervention: Biopsies as noted above, COLONOSCOPY Instrument: Olympus variable stiffness pediatric scope 190L Colonoscopy Monitoring: Vital signs and clinical assessment, continuous EKG monitoring, Pulse oximetry, Carbon Dioxide monitoring and blood pressure monitoring were done throughout the procedure. Colon withdrawal time was 8 minutes. Procedure: The patient was placed in the left lateral decubitis position and pre-procedure medications were administered. After a digital rectal examination of the ano-rectum, the video colonoscope was inserted into the rectum and advanced through the colon to the cecum/TI. The colonoscope was slowly withdrawn in a retrograde panoramic fashion and the colon mucosa was carefully examined including a retroflexed view of the rectum. Findings and interventions are described below. Procedure Difficulty:moderate Findings: Terminal Ileum-normal Cecum:normal right sided retroflexion- normal Ascending Colon: normal Transverse Colon -normal Descending Colon:normal Sigmoid Colon: normal Rectum: Retroflexion with small internal hemorrhoids, grade I Anorectum - normal Colon preparation: [place] Bowel Preparation Scale Right colon; 1-2 Transverse colon: 2 Left colon; 1-2 (0 = Unprepared colon segment with mucosa not seen due to solid stool that cannot be cleared. 1 = Portion of mucosa of the colon segment seen, but other areas of the colon segment not well seen due to staining, residual stool and/or opaque liquid. 2 = Minor amount of residual staining, small fragments of stool and/or opaque liquid, but mucosa of colon segment seen well. 3 = Entire mucosa of colon segment seen well with no residual staining, small fragments of stool or opaque liquid) Impression and Post Procedure Diagnosis: Endoscopy Findings: gastritis Colonoscopy Findings: internal hemorrhoids Plan: Await Pathology results Repeat Colonoscopy in 2-3 years due to areas of fair prep or earlier if clinic ally indicated High fiber diet leaflet avoid straining at stool, epsom salts and sitz bath, anusol supps or cream Above findings were reviewed with the patient and relevant handouts were provided if indicated.
[2025-03-09 12:58] VITALS: BP 101/66; PULSE 72; RESP 16; TEMP 36.4; O2SAT 100
[2025-03-09 13:13] VITALS: BP 106/61; PULSE 67; RESP 16; TEMP 36.4; O2SAT 100
== END 2025-03-09 13:22 | disposition home or self-care (01) ==
PROVIDERS: PCP Internal Medicine; Visit Provider Internal Medicine Gastroenterology
PROC: (CPT 43239; principal; 2025-03-09 13:00)
DX: Z12.11 Encounter for screening for malignant neoplasm of colon (principal); K64.0 First degree hemorrhoids; K29.60 Other gastritis without bleeding; K76.0 Fatty (change of) liver, not elsewhere classified
CPT/HCPCS: 43239; G0121; 88305; 88342; J2003; J2704

== ENCOUNTER → 2025-03-09 10:40 | Outpatient (BNV) | payer OTHER, SELFPAY | PROVIDERS: PCP Internal Medicine; Visit Provider Internal Medicine Gastroenterology | DX: Z12.11 Encounter for screening for malignant neoplasm of colon (principal); K64.0 First degree hemorrhoids; K29.70 Gastritis, unspecified, without bleeding | CPT/HCPCS: 43239; 45378 ==

== ENCOUNTER 2025-03-17 08:40 | Outpatient (AMB) | payer OTHER, SELFPAY ==
[2025-03-17 08:45] VITALS: BP 104/58; PULSE 70; O2SAT 100; BMI 18.4
--- NOTE | 2025-03-17 08:45 | MHC.OFFVIS ---
Vital Signs 03/17/25 08:45 Height 5 ft 9 in Weight 124 lb 6 oz BMI 18.4 BP 104/58 L Blood Pressure Location Rt brachial Position Sitting Pulse 70 Pulse Source Pulse Oximeter Pulse Oximetry (%) 100 Oxygen Delivery Method Room Air Intake Visit Reasons: Discuss H Pylori Tx. 30 Mins Intake Note: ESTABLISHED PATIENT FOR s/p FUV and H Pylori Tx discussion. Chief Complaint; Pt denies any GI sx at this time. Pt is here to discuss abx tx for H Pylori as well as possible next steps towards hernia surgery. Pt already est with [facility]urg [facility]. Farm Equipment Assembler Required: Yes Farm Equipment Assembler Services: Farm Equipment Assembler Offered & Declined Accompanied by: Son Allergies No Known Allergies Allergy (Verified 03/17/25 08:45) HPI HPI Discuss H Pylori Tx. 30 Mins: Details: LAST VISIT: Screen for colon cancer Splenic varices Gastric varices Fatty liver Plan Patient denies any GI, cardiac or respiratory symptoms.? Denies any issues with anesthesia in the past.? Denies any history of sleep apnea.? No history infectious diseases in the past or present.? Not on any anticoagulation therapy.? No family or personal history of colon cancer or polyps.? Patient denies melena, hematochezia, unintentional weight loss or ribbon like stools.? Gastric and splenic varices seen as well as possible gastritis on CT scan last year. Patient was referred by Dr. Rocha to us for that reason. PCP send patient to us for colonoscopy screening. Will order blood work today. CBC and CMP as well as PT and INR. Will check abdominal ultrasound to re-evaluate the liver and spleen closer. Patient will return in 3 months will discuss colonoscopy and patient will be sent for upper endoscopy as well. Both patient and his son is agreeable to plan of care and verbalizes understanding of instructions. They were given the opportunity to ask questions and all questions answered. ? Thank you for allowing me to participate in his care Orders Orders US abdomen complete Today R16.1 Lipase Today R10.9 Prothrombin Time INR Today R74.8 Complete Blood Count no Diff Today K21.9 Comprehensive Met. Panel Today K21.9 Medications New bisacodyl (Dulcolax (bisacodyl)) take 4 tabs at noon the day before your colonoscopy 20 mg (4 x 5 mg) PO ONCE 1 day 4 tabs 0RF Z12.11 polyethylene glycol 3350 (Miralax) As directed by gastroenterology department at [facility] 238 grams PO ONCE 238 grams 0RF Z12.11 ENDOSCOPY AND COLONOSSCOPY: Findings: Larynx:normal Esophagus: GE junction at 38 cm, diaphragm hiatus at 38 cm, normal mucosa - no varices seen Stomach: Patchy erythema. Biopsies were obtained. Grade 2 flap valve on retroflexed examination of the cardia. No gastric varices seen Duodenum: Normal bulb and descending duodenum, Intervention: Biopsies as noted above, COLONOSCOPY Instrument: Olympus variable stiffness pediatric scope 190L Colonoscopy Monitoring: Vital signs and clinical assessment, continuous EKG monitoring, Pulse oximetry, Carbon Dioxide monitoring and blood pressure monitoring were done throughout the procedure. Colon withdrawal time was 8 minutes. Procedure: The patient was placed in the left lateral decubitis position and pre-procedure medications were administered. After a digital rectal examination of the ano-rectum, the video colonoscope was inserted into the rectum and advanced through the colon to the cecum/TI. The colonoscope was slowly withdrawn in a retrograde panoramic fashion and the colon mucosa was carefully examined including a retroflexed view of the rectum. Findings and interventions are described below. Procedure Difficulty:moderate Findings: Terminal Ileum-normal Cecum:normal right sided retroflexion- normal Ascending Colon: normal Transverse Colon -normal Descending Colon:normal Sigmoid Colon: normal Rectum: Retroflexion with small internal hemorrhoids, grade I Anorectum - normal Colon preparation: [place] Bowel Preparation Scale Right colon; 1-2 Transverse colon: 2 Left colon; 1-2 (0 = Unprepared colon segment with mucosa not seen due to solid stool that cannot be cleared. 1 = Portion of mucosa of the colon segment seen, but other areas of the colon segment not well seen due to staining, residual stool and/or opaque liquid. 2 = Minor amount of residual staining, small fragments of stool and/or opaque liquid, but mucosa of colon segment seen well. 3 = Entire mucosa of colon segment seen well with no residual staining, small fragments of stool or opaque liquid) Impression and Post Procedure Diagnosis: Endoscopy Findings: gastritis Colonoscopy Findings: internal hemorrhoids Plan: Await Pathology results Repeat Colonoscopy in 2-3 years due to areas of fair prep or earlier if clinically indicated High fiber diet leaflet avoid straining at stool, epsom salts and sitz bath, anusol supps or cream PATHOLOGY: Diagnosis Stomach, biopsy: Chronic Helicobacter gastritis with mild activity; negative for intestinal metaplasia and dysplasia. TODAY'S VISIT: Patient is here today for follow-up and to discuss upper endoscopy and colonoscopy results. Patient had no varices, positive for H pylori. Here to discuss treatment. Patient denies any GI concerning symptoms. Denies any dyspepsia, dysphagia or odynophagia. Patient denies any issues with anesthesia or procedure itself. Patient had suboptimal prep and will need to repeat colonoscopy in 2-3 years. Patient was supposed to have inguinal hernia repair, however procedure was canceled as patient did not prep. No follow-up appointment made. Will walk patient over to the department so we can make appointment. Patient denies melena, hematochezia. Reports to have good appetite PFSH Medical History Splenic varices History of Mantoux positive, treatment status unknown Mild emphysema Gastric varices Fatty liver Pulmonary nodules Chronic idiopathic constipation Depression Osteoarthritis Left inguinal hernia Appendicitis Surgical History History of esophagogastroduodenoscopy (EGD) Hx of colonoscopy Hx of bilateral cataract extraction Hx of hernia repair Hx of appendectomy Social History Household Members Other:: son Housing: House Are you a primary client care consultant to a significant other at home: No Do you presently have visiting nurse or other home services: No 75 years or older and lives alone: No Patient Tobacco Use Status: Never used Tobacco Current occupational status: retired and disabled Current occupation: right hand Review of Systems Const Denies weight gain and Denies weight loss ENT Reports no additional complaints, Denies dysphagia and Denies odynophagia Card Reports no additional complaints Resp Reports no additional complaints GI Denies abdominal pain, Denies belching, Denies melena, Denies bloating, Denies change in bowel habits, Denies dysphagia, Denies excessive flatus, Denies dyspepsia, Denies heartburn, Denies diarrhea, Denies loose stools, Denies nausea, Denies odynophagia and Denies vomiting Reports no additional complaints Musc Reports no additional complaints Neuro Reports no additional complaints Psych Reports no additional complaints Endo Reports no additional complaints Physical Exam Vital Signs: Last Vital Signs Pulse 70 03/17/25 08:45 BP 104/58 L 03/17/25 08:45 Pulse Ox 100 03/17/25 08:45 Oxygen Delivery Method Room Air 03/17/25 08:45 BMI result Body Mass Index 18.4 Const General: healthy appearing, no acute distress and well developed Nutritional Appearance: well nourished Orientation/consciousness: patient oriented x3 Resp Effort & Inspection: normal respiratory effort, able to speak in complete sentences, no tracheal deviation and symmetric chest movement Auscultation: clear to auscultation bilaterally Cardio Rate: regular rate GI Inspection: Yes normal to inspection and No distended Palpation (GI): Soft to palpation, not firm, nontender and No hepatosplenomegaly present Auscultation: normal bowel sounds General: Yes no CVA tenderness Back/Spine/Pelvis Back: no CVA tenderness Skin General skin exam: elasticity normal, turgor normal and dry skin Neuro General: patient oriented x3 Psych Appearance: grossly normal Mental Status: mental status grossly normal Assessment & Plan Assessment & Plan (1) Splenic varices: Code(s): I86.8 - Varicose veins of other specified sites Category: Medical (2) Fatty liver: Code(s): K76.0 - Fatty (change of) liver, not elsewhere classified Category: Medical (3) Helicobacter pylori (H. pylori): Code(s): A04.8 - Other specified bacterial intestinal infections (4) Status post colonoscopy: Code(s): Z98.890 - Other specified postprocedural states (5) GERD (gastroesophageal reflux disease): Code(s): K21.9 - Gastro-esophageal reflux disease without esophagitis Qualifiers: Esophagitis presence: without esophagitis Qualified Code(s): K21.9 - Gastro-esophageal reflux disease without esophagitis Plan Patient was diagnosed with H pylori on upper endoscopy. Will treat empirically and retest to check for eradication of the bacteria. Patient will return in 3-4 months. Colonoscopy in 2-3 years due to suboptimal prep. Patient is to schedule appointment with his general surgeon to discuss going for inguinal hernia repair. Patient will call our office if he will have any GI concerning symptoms. He is agreeable to this plan and verbalizes understanding of instructions. He was given the opportunity to ask questions and all questions answered. Thank you for allowing me to participate in his care Medications: New metronidazole 1,000 mg (2 x 500 mg) PO BID 56 tabs 0RF A04.8 - Other specified bacterial intestinal infections doxycycline hyclate 100 mg PO BID 14 days 28 caps 0RF bismuth subsalicylate 2 tabs PO QID 14 days 112 tabs 0RF diarrhea A04.8 - Other specified bacterial intestinal infections omeprazole 20 mg PO BID 60 caps 2RF K21.9 - Gastro-esophageal reflux disease without esophagitis Coding Level of Care Code Est Pt Level 4 (90729) Complex EM visit Add On G2211 Diagnoses Splenic varices I86.8 Fatty liver K76.0 Helicobacter pylori (H. pylori) A04.8 Status post colonoscopy Z98.890 Gastroesophageal reflux disease without esophagitis K21.9 Esophagitis presence: without esophagitis Time Spent (min) 35 Comment 25 minutes spent with patient and additional 10 minutes spent reviewing his records
== END 2025-03-17 09:07 | disposition home or self-care (01) ==
LOC: HO.HGI 08:40
PROVIDERS: PCP Internal Medicine; Visit Provider Nurse Practitioner Family
DX: I86.8 Varicose veins of other specified sites (principal); K76.0 Fatty (change of) liver, not elsewhere classified; A04.8 Other specified bacterial intestinal infections; Z98.890 Other specified postprocedural states; K21.9 Gastro-esophageal reflux disease without esophagitis
CPT/HCPCS: 99214; G2211

== ENCOUNTER → 2025-03-17 08:40 | Outpatient (BNVA) | payer OTHER, SELFPAY | PROVIDERS: PCP Internal Medicine; Visit Provider Nurse Practitioner Family | DX: K76.0 Fatty (change of) liver, not elsewhere classified (principal); K21.9 Gastro-esophageal reflux disease without esophagitis; I86.8 Varicose veins of other specified sites; A04.8 Other specified bacterial intestinal infections; Z98.890 Other specified postprocedural states | CPT/HCPCS: 99212 ==

== ENCOUNTER 2025-04-02 09:11 | Day surgery (SDC) | payer OTHER, SELFPAY ==
[2025-03-26 10:23] VITALS: BP 104/64; PULSE 65; RESP 16; O2SAT 100; BMI 19.5
--- NOTE | 2025-03-26 10:44 | HO.ANESPROP2 ---
HPI - Anesthesia Eval Consult details Narrative: 69yo M for Right OPEN Hernia Inguinal Reducible with mesh, 04/02/[address] 07/2024 shows splenic and gastric varices suggesting portal htn, dilated bile ducts and dilated esophagus. Referred to GI for eval - EGD/[place] 03/09/25 - No gastric varices, pathology of bx revealed H pylori, abx started. No recent illness No CP/SOB with walking, housework PMFSH Active Problems Active Problems: All Active Problems Primary localized osteoarthritis of knees, bilateral (Acute) Right inguinal hernia (Acute) Right shoulder tendonitis (Acute) Fatty liver (Acute) Splenic varices (Acute) Past Medical History Medical History (Updated 03/26/25 @ 07:47 by Yadira Matute RN) Dementia Rheumatism Splenic varices History of Mantoux positive, treatment status unknown Mild emphysema Gastric varices Fatty liver Pulmonary nodules Chronic idiopathic constipation Depression Osteoarthritis Left inguinal hernia Appendicitis Family History Family history of problems with anesthesia: No Surgical History Surgical History History of esophagogastroduodenoscopy (EGD) Hx of colonoscopy Hx of bilateral cataract extraction Hx of hernia repair Hx of appendectomy History of Problems with Anesthesia: No Social History Social History Household Members Other:: son Housing: House Are you a primary managed care specialist to a significant other at home: No Do you presently have visiting nurse or other home services: No Patient Tobacco Use Status: Never used Tobacco Use of substances other than those prescribed or required for medical reasons: No Have you been hit, kicked, punched, or otherwise hurt by someone within the past year? If so, by whom?: No Are you DNR?: No Advance Directives: No Advance Directives Information Provided: No Advance Directives on File: No Poor oral hygiene: Yes Current occupational status: retired and disabled Current occupation: right hand Meds Allergies Allergy/AdvReac Type Severity Reaction Status Date / Time No Known Allergies Allergy Verified 03/17/25 08:45 Home Medications ?Medication ?Instructions ?Recorded ?Confirmed ?Last Taken ?Type multivitamin 1 tab PO DAILY 01/12/25 03/26/25 Unknown History Exam Height,Weight and Vital Signs: Height 5 ft 8 in Weight 58.06 kg Last Vital Signs Pulse 65 03/26/25 10:23 Resp 16 03/26/25 10:23 BP 104/64 03/26/25 10:23 Pulse Ox 100 03/26/25 10:23 O2 Del Method Room Air 03/26/25 10:23 Pertinent Lab Results Pertinent Lab Results: Laboratory Tests 01/15/25 09:13 WBC 3.9 L Hgb 14.7 Hct 42.9 Plt Count 237 Sodium 138 Potassium 4.6 Chloride 106 Carbon Dioxide 27 BUN 12 Creatinine 0.92 Airway Mallampati Class: II TM Dist: >3cm Neck ROM: Full Partial: Upper and Lower Heart: RRR Lungs: CTAB Assessment and Plan Assessment Anesthesia Assessment: Anesthesia Plan Discussed and PAT Visit Final Anesthetic Review Family History of Problems with Anesthesia: No History of Problems with Anesthesia: No
[2025-04-02 09:34] VITALS: BP 130/76; PULSE 66; RESP 14; TEMP 36.5; O2SAT 100
[2025-04-02] MEDS: Lactated Ringers 1,000 ML 100 ML IVCONT (09:49)
--- NOTE | 2025-04-02 10:26 | P.HPSUR_ITS ---
Pre-Procedural Eval Section A - 24 Hr Update-Section A only Date of Service: 04/02/25 The patient is an INPATIENT: No Changes since office visit: Yes Patient answered all questions; No Cold of Flu in the past 2 weeks, No New Medical Problems and No Changes in Medication The patient has been examined within 24 hours of the surgical procedure. The History & Physical has been completed within 30 days and I have reviewed it.: No Section B - Complete if H&P > 30 days Chief Complaint: Unilateral inguinal hernia, without obstruction Details of Present Illness: 69-year-old male patient presenting with complaints of a several year history of a right inguinal hernia which is causing discomfort. He denies nausea, vomiting, fever or chills. He denies recent bowel changes. On examination she was noted to have a lump in the right groin which increases with Valsalva but reduces with light pressure. Relevant Family History (Specify if Yes): No Relevant Social History: None Present Medications: see Short Stay Collaborative assessment Medical History: No relevant PMH History of Previous Operations: No relevant previous surgery Allergies: Allergies Allergy/AdvReac Type Severity Reaction Status Date / Time No Known Allergies Allergy Verified 04/02/25 09:32 Review of Systems Sugical H&P ROS: Negative: Constitution, Cardiovascular, Respiratory, Neurological, Psychiatric, Hem-Onc, Allergic/Immunologic, Gastrointestinal, Genitourinary, Musculoskeletal and Integumentary Exam Surgical H&P Exam: Normal: HEENT, Normal: Heart, Normal: Lungs, Normal: Extremities and Normal: Skin and Significant Findings: Abdomen (Reducible right inguinal hernia) Plan Diagnosis/Plan: Unchanged I have reviewed the history and physical and performed a pertinent physical examination on my patient. No changes have occurred unless specified. I reviewed the physical findings as well as discussed the surgical procedure with both the patient through the use of an aerial photograph interpreter and the son. I discussed the risks alternatives and benefits of a repair of the right inguinal hernia with mesh. He consents to the surgery. Time Spent With Patient Time: Total time managing care of this patient today ____ minutes.
--- NOTE | 2025-04-02 11:16 | P.OP_ITS ---
Operative Note Operative Note Date of Service: 04/02/25 Narrative: Preoperative diagnosis: Right inguinal hernia, reducible Postoperative diagnosis: Same Procedure: Repair of reducible right inguinal hernia with mesh Surgeon: Chaz Lentz MD Type Bar And Segment Assembler: Heather Oviedo PA-C; Yash Quezada PA-C Anesthesia: General LMA Indications for procedure: 69-year-old male patient presenting with complaints of a painful lump in the right groin which increases in size with lifting and straining and reduces with light pressure. He has a previous history of a left inguinal hernia repair. Operative findings: Direct right inguinal hernia Specimen: None Estimated blood loss: Less than 2 mL Complications: None Procedure details: Patient was brought to the OR and placed in a supine position. After administering general anesthesia the patient's abdomen was prepped with ChloraPrep and draped in a sterile fashion. A surgical time-out was called the consent confirmed. Patient received preoperative antibiotics and Venodyne boots were in place. Local anesthesia consisting of 0.5% Sensorcaine with epinephrine was infiltrated over the right inguinal ligament. Incision was then made with a scalpel and carried out through subcutaneous tissue, past Mickey's fascia and up to the external oblique aponeurosis. Additional local was infiltrated below the aponeurosis. This was then incised with a scalpel widened with the Metzenbaum scissors. Spermatic cord was then dissected free from the surrounding inguinal canal and retracted using a Andrews drain. The floor of the inguinal canal was noted to have a direct inguinal hernia. Fibers of the cremaster muscle were and no indirect hernia could be identified. Attention was then directed to the floor of the inguinal canal. Fibers of the internal oblique aponeurosis and transversalis aponeurosis were incised with the electrocautery. This was then further defined using an open Ray-Patricia sponge to enter the preperitoneal space. A large PHS mesh was then obtained. The circular underlay was deployed within the preperitoneal space. The overlay was then secured to the pubic tubercle, conjoined tendon, and shelving edge of the inguinal ligament using a 0 Polysorb suture. A slit was made in the mesh in the mesh wrapped around the spermatic cord at the internal ring. This was then secured to the shelving edge of the inguinal ligament using the 0 Polysorb suture. The remainder of the mesh was placed laterally below the external oblique aponeurosis. The incision was then irrigated with saline solution and suctioned dry. External oblique aponeurosis was then closed using a running 2-0 Polysorb suture. Approximately 7 mL of Zenrelef was instilled below the external oblique aponeurosis for postoperative pain relief. Mickey's fascia and dermis were then reapproximated using interrupted 3-0 Polysorb sutures. Skin was then closed using a running subcuticular 4-0 Polysorb suture. Steri-Strips, 2 x 2 gauze and Tegaderm were then applied. The patient tolerated the procedure well. Sponge, instrument, and needle counts reported as correct. The patient was transferred to PACU in stable condition.
[2025-04-02 11:45] VITALS: BP 114/61; PULSE 86; RESP 16; TEMP 36.4; O2SAT 100
[2025-04-02 11:50] VITALS: BP 114/64; PULSE 82; RESP 16; O2SAT 100
[2025-04-02 11:55] VITALS: BP 116/69; PULSE 88; RESP 16; O2SAT 99
[2025-04-02 12:00] VITALS: BP 122/73; PULSE 88; RESP 16; TEMP 36.1; O2SAT 98
== END 2025-04-02 12:36 | disposition home or self-care (01) ==
PROVIDERS: PCP Internal Medicine; Visit Provider Surgery
PROC: (CPT 49505; principal; 2025-04-02 12:00)
DX: K40.90 Unilateral inguinal hernia, without obstruction or gangrene, not specified as recurrent (principal); K76.0 Fatty (change of) liver, not elsewhere classified; K59.04 Chronic idiopathic constipation; I86.8 Varicose veins of other specified sites; F03.90 Unspecified dementia, unspecified severity, without behavioral disturbance, psychotic disturbance, mood disturbance, and anxiety; R91.8 Other nonspecific abnormal finding of lung field; M06.9 Rheumatoid arthritis, unspecified; Z79.899 Other long term (current) drug therapy
CPT/HCPCS: 49505; C1781; C9088; J0131; J0690; J1100; J2003; J2405; J2704; J3010

== ENCOUNTER → 2025-04-02 09:11 | Outpatient (BNV) | payer OTHER, SELFPAY | PROVIDERS: PCP Internal Medicine; Visit Provider Surgery | DX: K40.90 Unilateral inguinal hernia, without obstruction or gangrene, not specified as recurrent (principal) | CPT/HCPCS: 49505 ==

== ENCOUNTER 2025-04-13 13:48 | Outpatient (AMB) | payer OTHER, SELFPAY ==
--- NOTE | 2025-04-13 13:50 | A.OFFVIS_ITS ---
Vital Signs 04/13/25 13:58 Height 5 ft 8 in Weight 122 lb 4 oz BMI 18.6 BP 112/68 Blood Pressure Location Lt brachial Position Sitting Pulse 73 Intake Visit Reasons: S/P RIH w/mesh Intake Note: Patient is seen in office for post op assessment post right inguinal hernia repair. Pt c/o: admits to some pain, denies any other concerns surgery:04/02/25 Accompanied by: Family/Other Allergies No Known Allergies Allergy (Verified 04/13/25 13:58) Medication List - Last Reconciled 04/13/25 by Chaz Lentz MD bismuth subsalicylate 2 tabs PO QID 14 days doxycycline hyclate 100 mg PO BID 14 days metronidazole 1,000 mg (2 x 500 mg) PO BID multivitamin 1 tab PO DAILY omeprazole 20 mg PO BID oxycodone 5 mg PO Q6H PRN HPI Comments Details: 69-year-old male patient returning 1 week following repair of a right inguinal hernia with mesh. He reports some soreness and swelling in the incision but is otherwise eating well without any nausea or vomiting. His bowels are working as well. He denies any other problems following the surgery. [facility] Medical History Dementia Rheumatism Splenic varices History of Mantoux positive, treatment status unknown Mild emphysema Gastric varices Fatty liver Pulmonary nodules Chronic idiopathic constipation Depression Osteoarthritis Left inguinal hernia Appendicitis Surgical History History of right inguinal hernia repair (04/02/25) History of esophagogastroduodenoscopy (EGD) Hx of colonoscopy Hx of bilateral cataract extraction Hx of hernia repair Hx of appendectomy Social History Household Members Other:: son Housing: House Are you a primary ambulatory care nurse to a significant other at home: No Do you presently have visiting nurse or other home services: No 75 years or older and lives alone: No Patient Tobacco Use Status: Never used Tobacco Current occupational status: retired and disabled Current occupation: right hand Physical Exam Vital Signs: Last Vital Signs Pulse 73 04/13/25 13:58 BP 112/68 04/13/25 13:58 BMI result Body Mass Index 18.6 Const General: no acute distress Nutritional Appearance: thin Orientation/consciousness: patient oriented x3 Limitations: no limitations Resp Effort & Inspection: normal respiratory effort GI Other: Soft, nondistended, well-healed incision in the right groin without hematoma or seroma. Some swelling in the testicle is noted. Neuro General: patient oriented x3 Extrem Other: No edema Assessment & Plan Assessment & Plan (1) Right inguinal hernia: Code(s): K40.90 - Unilateral inguinal hernia, without obstruction or gangrene, not specified as recurrent Category: Surgical Plan 69-year-old male patient returning 1 week following repair of a right inguinal hernia with mesh. His wounds are healing nicely with the usual swelling postoperatively. He should continue to avoid lifting greater than 10 lb and return in approximately 1 month for follow-up examination. He is welcome to call sooner for any new concerns. Coding Level of Care Code Global (64154) Diagnoses Right inguinal hernia K40.90
[2025-04-13 13:58] VITALS: BP 112/68; PULSE 73; BMI 18.6
== END 2025-04-13 14:06 | disposition home or self-care (01) ==
LOC: HO.HGS 13:49
PROVIDERS: PCP Internal Medicine; Visit Provider Surgery
DX: K40.90 Unilateral inguinal hernia, without obstruction or gangrene, not specified as recurrent (principal)
CPT/HCPCS: 99024

== ENCOUNTER → 2025-04-13 13:48 | Outpatient (BNVA) | payer OTHER, SELFPAY | PROVIDERS: PCP Internal Medicine; Visit Provider Surgery | DX: K40.90 Unilateral inguinal hernia, without obstruction or gangrene, not specified as recurrent (principal) | CPT/HCPCS: 99212 ==

== ENCOUNTER 2025-05-20 09:06 | Outpatient (AMB) | payer OTHER, SELFPAY ==
--- NOTE | 2025-05-20 09:08 | A.OFFVIS_ITS ---
Vital Signs 05/20/25 09:13 Height 5 ft 8 in Weight 123 lb BMI 18.7 BP 108/65 Blood Pressure Location Lt brachial Position Sitting Pulse 68 Intake Visit Reasons: 1 month S/P RIH w/mesh Intake Note: Patient is seen in office for one month follow up visit, post right inguinal hernia repair. 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 He reports no pain, nausea, vomiting, bowel changes or any associated symptoms. He generally feels well. [facility] Medical History Dementia Rheumatism Splenic varices History of Mantoux positive, treatment status unknown Mild emphysema Gastric varices Fatty liver Pulmonary nodules Chronic idiopathic constipation Depression Osteoarthritis Left inguinal hernia Appendicitis Surgical History History of right inguinal hernia repair (04/02/25) History of esophagogastroduodenoscopy (EGD) Hx of colonoscopy Hx of bilateral cataract extraction Hx of hernia repair Hx of appendectomy Social History Household Members Other:: son Housing: House Are you a primary care transitions nurse to a significant other at home: No Do you presently have visiting nurse or other home services: No 75 years or older and lives alone: No Patient Tobacco Use Status: Never used Tobacco Current occupational status: retired and disabled Current occupation: right hand Physical Exam Vital Signs: Last Vital Signs Pulse 68 05/20/25 09:13 BP 108/65 05/20/25 09:13 BMI result Body Mass Index 18.7 Const General: no acute distress Nutritional Appearance: thin Orientation/consciousness: patient oriented x3 Limitations: no limitations Resp Effort & Inspection: normal respiratory effort GI Other: Soft, nondistended, well-healed incision in the right groin without hematoma or seroma. Normal healing ridge is noted. No hernia noted with Valsalva ma neuvers. Neuro General: patient oriented x3 Extrem Other: No edema Assessment & Plan Assessment & Plan (1) Right inguinal hernia: Code(s): K40.90 - Unilateral inguinal hernia, without obstruction or gangrene, not specified as recurrent Category: Surgical Plan 69-year-old male patient returning 1 month following repair of a right inguinal hernia with mesh. He tolerated the procedure well in his wounds are healing nicely. There was no evidence of a hernia recurrence. He may resume normal activity without restrictions and should return as needed. Coding Level of Care Code Global (70794) Diagnoses Right inguinal hernia K40.90
[2025-05-20 09:13] VITALS: BP 108/65; PULSE 68; BMI 18.7
== END 2025-05-20 09:48 | disposition home or self-care (01) ==
LOC: HO.HGS 09:07
PROVIDERS: PCP Internal Medicine; Visit Provider Surgery
DX: K40.90 Unilateral inguinal hernia, without obstruction or gangrene, not specified as recurrent (principal)
CPT/HCPCS: 99024

== ENCOUNTER → 2025-05-20 09:06 | Outpatient (BNVA) | payer OTHER, SELFPAY | PROVIDERS: PCP Internal Medicine; Visit Provider Surgery | DX: K40.90 Unilateral inguinal hernia, without obstruction or gangrene, not specified as recurrent (principal) | CPT/HCPCS: 99212 ==

== ENCOUNTER 2025-07-16 08:28 | Outpatient (AMB) | payer OTHER, SELFPAY ==
[2025-07-16 08:29] VITALS: BP 104/66; PULSE 66; O2SAT 100; BMI 18.2
--- NOTE | 2025-07-16 08:29 | A.OFFVIS_ITS ---
Vital Signs 07/16/25 08:29 Height 5 ft 8 in Weight 120 lb BMI 18.2 BP 104/66 Blood Pressure Location Rt brachial Position Sitting Pulse 66 Pulse Source Pulse Oximeter Pulse Oximetry (%) 100 Oxygen Delivery Method Room Air Intake Visit Reasons: 4 mo f/u Intake Note: Est pt for mgmt of CIC + fatty liver. S/P HP tx. CC; Pt denies any GI changes or new sx since last visit. Pt states he is not taking his PPI x1 mos. Mirror Machine Feeder Required: Yes Mirror Machine Feeder Services: Mirror Machine Feeder Offered & Declined Accompanied by: Son Allergies No Known Allergies Allergy (Verified 07/16/25 08:29) HPI HPI 4 mo f/u: Details: LAST VISIT: Splenic varices Fatty liver Helicobacter pylori (H. pylori) Status post colonoscopy GERD (gastroesophageal reflux disease) Plan Patient was diagnosed with H pylori on upper endoscopy. Will treat empirically and retest to check for eradication of the bacteria. Patient will return in 3-4 months. Colonoscopy in 2-3 years due to suboptimal prep. Patient is to schedule appointment with his general surgeon to discuss going for inguinal hernia repair. Patient will call our office if he will have any GI concerning symptoms. He is agreeable to this plan and verbalizes understanding of instructions. He was given the opportunity to ask questions and all questions answered. ? Thank you for allowing me to participate in his care New metronidazole 1,000 mg (2 x 500 mg) PO BID 56 tabs 0RF A04.8 doxycycline hyclate 100 mg PO BID 14 days 28 caps 0RF bismuth subsalicylate 2 tabs PO QID 14 days 112 tabs 0RF diarrhea A04.8 omeprazole 20 mg PO BID 60 caps 2RF K21.9 TODAY'S VISIT: Patient is here today for follow-up and retest for H pylori. Patient reports feeling well. He denies any acid reflux, dyspepsia, dysphagia or odynophagia. Denies any epigastric pain. Reports to have a good appetite. Patient reports that he finish all of his antibiotics. Patient denies any GI concerning symptoms [facility] Medical History (Updated 07/16/25 @ 09:00 by Yaa Hernandez [facility]) History of Helicobacter pylori infection Dementia Rheumatism Splenic varices History of Mantoux positive, treatment status unknown Mild emphysema Gastric varices Fatty liver Pulmonary nodules Chronic idiopathic constipation Depression Osteoarthritis Left inguinal hernia Appendicitis Surgical History History of right inguinal hernia repair (04/02/25) History of esophagogastroduodenoscopy (EGD) Hx of colonoscopy Hx of bilateral cataract extraction Hx of hernia repair Hx of appendectomy Social History Household Members Other:: son Housing: House Are you a primary medicare coordinator to a significant other at home: No Do you presently have visiting nurse or other home services: No 75 years or older and lives alone: No Patient Tobacco Use Status: Never used Tobacco Current occupational status: retired and disabled Current occupation: right hand Review of Systems Const Denies weight gain and Denies weight loss ENT Reports no additional complaints, Denies dysphagia and Denies odynophagia Card Reports no additional complaints Resp Reports no additional complaints GI Denies abdominal pain, Denies belching, Denies melena, Denies bloating, Denies change in bowel habits, Denies dysphagia, Denies excessive flatus, Denies dyspepsia, Denies heartburn, Denies diarrhea, Denies loose stools, Denies nausea, Denies odynophagia and Denies vomiting Reports no additional complaints Musc Reports no additional complaints Neuro Reports no additional complaints Psych Reports no additional complaints Endo Reports no additional complaints Physical Exam Vital Signs: Last Vital Signs Pulse 66 07/16/25 08:29 BP 104/66 07/16/25 08:29 Pulse Ox 100 07/16/25 08:29 Oxygen Delivery Method Room Air 07/16/25 08:29 BMI result Body Mass Index 18.2 Const General: healthy appearing, no acute distress and well developed Nutritional Appearance: well nourished Orientation/consciousness: patient oriented x3 Resp Effort & Inspection: normal respiratory effort, able to speak in complete sentences, no tracheal deviation and symmetric chest movement Auscultation: clear to auscultation bilaterally Cardio Rate: regular rate GI Inspection: Yes normal to inspection and No distended Palpation (GI): Soft to palpation, not firm, nontender and No hepatosplenomegaly present Auscultation: normal bowel sounds General: Yes no CVA tenderness Back/Spine/Pelvis Back: no CVA tenderness Skin General skin exam: elasticity normal, turgor normal and dry skin Neuro General: patient oriented x3 Psych Appearance: grossly normal Mental Status: mental status grossly normal Assessment & Plan Assessment & Plan (1) Fatty liver: Code(s): K76.0 - Fatty (change of) liver, not elsewhere classified Category: Medical (2) History of Helicobacter pylori infection: Code(s): Z86.19 - Personal history of other infectious and parasitic diseases Category: Medical (3) Splenic varices: Code(s): I86.8 - Varicose veins of other specified sites Category: Medical Plan Will retest for H pylori today if positive will treat empirically have and have patient return to the office to retest again. He will be placed on PPI. If negative he currently has no symptoms any in follow-up in the office as needed. Patient is agreeable to this plan and verbalizes understanding of instructions. He was given the opportunity to ask questions and all questions answered. Thank you for allowing me to participate in his care Orders: Orders H Pylori Breath Test Today K21.9 - Gastro-esophageal reflux disease without esophagitis Coding Level of Care Code Est Pt Level 3 (73996) Diagnoses Fatty liver K76.0 History of Helicobacter pylori infection Z86.19 Splenic varices I86.8 Time Spent (min) 25 Comment 15 minutes spent with patient and additional 10 minutes spent reviewing his records
== END 2025-07-16 09:43 | disposition home or self-care (01) ==
LOC: HO.HGI 08:28
PROVIDERS: PCP Internal Medicine; Visit Provider Nurse Practitioner Family
DX: K76.0 Fatty (change of) liver, not elsewhere classified (principal); Z86.19 Personal history of other infectious and parasitic diseases; I86.8 Varicose veins of other specified sites
CPT/HCPCS: 99213

== ENCOUNTER 2025-07-16 08:28 | Outpatient (REF) | payer OTHER, SELFPAY | END 2025-07-16 08:29 | disposition home or self-care (01) | LOC: HO.LNP 08:28 | PROVIDERS: PCP Internal Medicine; Visit Provider Nurse Practitioner Family | DX: K76.0 Fatty (change of) liver, not elsewhere classified (principal); K21.9 Gastro-esophageal reflux disease without esophagitis; Z86.19 Personal history of other infectious and parasitic diseases; I86.8 Varicose veins of other specified sites | CPT/HCPCS: 83013; 99212 ==